=== PATIENT | male | born 1990 | race African-American/Black ===

== ENCOUNTER 2022-03-08 14:27 | Emergency (ER) | payer OTHER ==
[~2022-03-08] VITALS: Ht 172.7 cm; Wt 73.0 kg
[2022-03-08 14:33] VITALS: BP 131/79
[2022-03-08] MEDS ORDERED: VISCOUS LIDOCAINE 2% 15 ML UDC PO STA (15:25)
[2022-03-08] MEDS ORDERED: ONDANSETRON 4MG ODT PO STA (15:25)
[2022-03-08] MEDS ORDERED: MAGNESIUM/ALUMINUM HYDROXIDE/SIMETHICONE 30ML UDC PO STA (15:25)
[2022-03-08 16:11] LABS: BASOPHILS % 0.8 % (0.0-2.0); CHLORIDE 110 mEq/L (98-107); EOSINOPHILS % 1.2 % (0.0-5.0); HEMATOCRIT. 41.4 % (42.0-52.0); HEMOGLOBIN. 14.1 g/dL (14.0-18.0); LYMPHOCYTES % 37.3 % (20.0-50.0); MEAN CORPUSCULAR HEMOGLOBIN 27.6 pg (28.0-32.0); MEAN CORPUSCULAR VOLUME 80.9 fL (80.0-94.0); MEAN PLATELET VOLUME 10.4 fl (7.4-10.4); MONOCYTES % 7.3 % (2.0-8.0); NEUTROPHILS % 53.4 % (40.0-76.0); PLATELET 138 x1000/uL (130-400); RED BLOOD CELL COUNT 5.11 mill/uL (4.7-6.1); RED CELL DISTRIBUTION WIDTH 14.4 % (11.6-14.6)
== END 2022-03-08 17:10 | disposition home or self-care (01) ==
LOC: ER 14:27
DX: R10.13 Epigastric pain (principal); F14.90 Cocaine use, unspecified, uncomplicated; F12.90 Cannabis use, unspecified, uncomplicated; F15.90 Other stimulant use, unspecified, uncomplicated; F20.9 Schizophrenia, unspecified; Z72.89 Other problems related to lifestyle; Z71.51 Drug abuse counseling and surveillance of drug abuser
CPT/HCPCS: 36415; 80053; 83690; 85025; 99284; Q0162

== ENCOUNTER 2022-09-10 08:31 | Emergency (ER) | payer MEDICAID, OTHER ==
[~2022-09-10] VITALS: Ht 182.9 cm; Wt 82.0 kg
[2022-09-10 08:55] VITALS: BP 112/63
[2022-09-10] MEDS ORDERED: TOPUD PO (10:17)
== END 2022-09-10 12:33 | disposition home or self-care (01) ==
LOC: ER 08:31
DX: S90.32XA Contusion of left foot, initial encounter (principal); V03.90XA Pedestrian on foot injured in collision with car, pick-up truck or van, unspecified whether traffic or nontraffic accident, initial encounter; Y93.89 Activity, other specified; Y92.488 Other paved roadways as the place of occurrence of the external cause
CPT/HCPCS: 73620; 99283; Z7610